=== PATIENT | female | born 1955 | race American Indian/Alaskan Native ===

== ENCOUNTER 2017-06-07 17:31 | Inpatient (IN) | payer OTHER ==
[2017-06-07 18:24] LABS: Basophils % (Auto) 0.6 % (0.0-1.8); Eosinophils % (Auto) 0.6 % (0.0-4.3); Hematocrit 36.9 % (30.3-42.9); Hemoglobin 11.6 gm/dl (10.1-14.3); Mean Corpuscular HGB Conc 32 % (30-34); Mean Corpuscular Volume 81 fl (79-97); Platelet Count 228 K/mm3 (140-440); Red Blood Count 4.54 M/mm3 (3.65-5.03); Red Cell Distribution Width 14.8 % (13.2-15.2); White Blood Count 7.2 K/mm3 (4.5-11.0)
[2017-06-07 18:26] LABS: Mean Corpuscular Hemoglobin 26 pg (28-32)
--- NOTE | 2017-06-07 18:27 | Emergency Department Report ---
HPI - General Chief Complaint: Chest Pain Time Seen by Provider: 06/07/17 18:05 - HPI HPI: Room 19 The patient is a 61-year-old female presenting with a chief complaint of chest pain. The patient states her symptoms began this morning intermittent substernal chest pain associated with nausea. Patient denies shortness of breath or vomiting. 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 Location: Chest Duration: Constant 1 day Quality: Pain Severity: Moderate Modifying factors: [see above] Context: [see above] Mode of transportation: [not driving] ED Past Medical Hx - Past Medical History Previous Medical History?: Yes Hx Hypertension: Yes Hx Diabetes: Yes - Surgical History Past Surgical History?: Yes Additional Surgical History: 2 C-Sections in 1986 and 2002 - Family History Family history: no significant - Social History Smoking Status: Never Smoker Substance Use Type: None - Medications Home Medications: Home Medications Medication Instructions Recorded Confirmed Last Taken Type Verapamil HCl [Verapamil ER] 180 mg PO QDAY 07/07/13 03/12/15 03/12/15 08:00 History cloNIDine [Catapres] 0.2 mg PO QHS 07/07/13 03/12/15 03/11/15 21:00 History metFORMIN [Glucophage] 500 mg PO QDAY 07/07/13 03/12/15 03/12/15 13:30 History Loratadine [Claritin] 10 mg PO DAILY 03/12/15 03/12/15 03/12/15 08:00 History Hydrochlorothiazide [HCTZ] 25 mg PO QDAY #30 tablet 03/13/15 Unknown Rx Prednisone [predniSONE 10 mg 10 mg PO .TAPER #1 tab.ds.pk 03/13/15 Unknown Rx (6-Day Pack, 21 Tabs)] cloNIDine [Catapres] 0.1 mg PO BID #60 tablet 03/13/15 Unknown Rx ED Review of Systems ROS: Stated complaint: CHEST PAIN Other details as noted in HPI Constitutional: denies: diaphoresis Respiratory: denies: shortness of breath Cardiovascular: chest pain Gastrointestinal: nausea. denies: vomiting Physical Exam - Physical Exam Vital Signs: Vital Signs 06/07/17 17:53 Temperature 98.3 F Pulse Rate 35 L Respiratory 16 Rate Blood Pressure 132/69 O2 Sat by Pulse 100 Oximetry Physical Exam: GENERAL: The patient is well-developed well-nourished female lying on a stretcher appearing to be in mild discomfort. [] HEENT: Normocephalic. Atraumatic. Extraocular motions are intact. Patient has moist mucous membranes. NECK: Supple. Trachea midline CHEST/LUNGS: Clear to auscultation. There is no respiratory distress noted. HEART/CARDIOVASCULAR: Regular. There is no tachycardia. There is no gallop rub or murmur. ABDOMEN: Abdomen is soft, nontender. Patient has normal bowel sounds. There is no abdominal distention. SKIN: There is no rash. There is no diaphoresis. NEURO: The patient is awake, alert, and oriented. The patient is cooperative. The patient has normal speech and gait. MUSCULOSKELETAL: There is no evidence of acute injury. ED Course Vital Signs 06/07/17 17:53 Temperature 98.3 F Pulse Rate 35 L Respiratory 16 Rate Blood Pressure 132/69 O2 Sat by Pulse 100 Oximetry - Consultations Consultation #1: 06/07/17 18:08 EKG and case discussed with Dr. Fransisco Owusu. Requests laborer wharf be called in. Will place temporary pacemaker. Requests hospitalist admit ED Medical Decision Making - Lab Data Result diagrams: 06/07/17 18:11 06/07/17 18:11 Laboratory Tests 06/07/17 06/07/17 06/07/17 18:11 18:11 18:11 WBC 7.2 RBC 4.54 Hgb 11.6 Hct 36.9 MCV 81 MCH 26 L MCHC 32 RDW 14.8 Plt Count 228 Lymph % (Auto) 27.9 [place] % (Auto) 8.3 H Eos % (Auto) 0.6 Baso % (Auto) 0.6 Lymph # 2.0 [place] # 0.6 Eos # 0.0 Baso # 0.0 Seg Neutrophils % 62.6 Seg Neutrophils # 4.5 PT 12.6 INR 0.90 APTT 28.5 Sodium 134 L Potassium 4.1 Chloride 96.7 L Carbon Dioxide 21 L Anion Gap 20 BUN 28 H Creatinine 1.4 H Estimated GFR 46 BUN/Creatinine Ratio 20 Glucose 146 H Calcium 9.5 Total Creatine Kinase 519 H CK-MB (CK-2) 6.2 H CK-MB (CK-2) Rel Index 1.1 Troponin T < 0.010 NT-Pro-B Natriuret Pep 724.4 Digoxin 06/07/17 18:11 WBC RBC Hgb Hct MCV MCH MCHC RDW Plt Count Lymph % (Auto) [place] % (Auto) Eos % (Auto) Baso % (Auto) Lymph # [place] # Eos # Baso # Seg Neutrophils % Seg Neutrophils # PT INR APTT Sodium Potassium Chloride Carbon Dioxide Anion Gap BUN Creatinine Estimated GFR BUN/Creatinine Ratio Glucose Calcium Total Creatine Kinase CK-MB (CK-2) CK-MB (CK-2) Rel Index Troponin T NT-Pro-B Natriuret Pep Digoxin 0.4 L - EKG Data -: EKG Interpreted by Me Rate: bradycardia (34 bpm) - EKG Data When compared to previous EKG there are: previous EKG unavailable Interpretation: other (third-degree AV block) - Radiology Data Radiology results: image reviewed (chest x-ray) interpreted by me: Chest x-ray-no focal infiltrates, no pneumothorax. Cardiomegaly - Differential Diagnosis third-degree AV block, ACS Critical care attestation.: If time is entered above; I have spent that time in minutes in the direct care of this critically ill patient, excluding procedure time. ED Disposition Clinical Impression: Third degree AV block, Chest pain Disposition: OP ADMIT IP TO THIS HOSP Is pt being admited?: Yes Condition: Serious Instructions: Chest Pain (ED) Referrals: PRIMARY CARE, [Primary Care Provider] - 3-5 Days Time of Disposition: 18:27 (case discussed with Dr. Gonzales)
[2017-06-07] MEDS ORDERED: BABY ASPIRIN PO ONE (18:28)
[2017-06-07] MEDS ORDERED: BABY ASPIRIN ONE (18:31)
[2017-06-07 18:34] LABS: INR 0.9 (0.87-1.13); Partial Thromboplastin Time 28.5 Sec. (24.2-36.6)
[2017-06-07 18:49] LABS: Creatine Kinase MB 6.2 ng/mL (0.0-4.0)
[2017-06-07 18:50] LABS: Anion Gap 20 mmol/L; BUN/Creatinine Ratio 20; Blood Urea Nitrogen 28 mg/dL (7-17); Calcium 9.5 mg/dL (8.4-10.2); Carbon Dioxide 21 mmol/L (22-30); Chloride 96.7 mmol/L (98-107); Creatine Kinase 519 units/L (30-135); Glucose 146 mg/dL (65-100); Potassium 4.1 mmol/L (3.6-5.0); Sodium 134 mmol/L (137-145)
[2017-06-07] MEDS ORDERED: ATROPINE 0.1% (CARDIAC) ONE (19:07)
[2017-06-07] MEDS ORDERED: NACL 0.9% 0 ML ONE (19:07)
[2017-06-07] MEDS ORDERED: HEPARIN/NS 5000 UNIT/500ML(CATH LAB) 1,000 ML IR ONE (19:07)
[2017-06-07] MEDS ORDERED: ANGIOMAX IV ONE (19:08)
[2017-06-07] MEDS ORDERED: VERSED ONE (19:08)
[2017-06-07] MEDS ORDERED: SUBLIMAZE ONE (19:08)
[2017-06-07] MEDS ORDERED: XYLOCAINE 2% INFILTRATI ONE (19:09)
[2017-06-07] MEDS ORDERED: NACL 0.9% 500 ML 500 ML ONE ×2 (19:09→19:15)
--- NOTE | 2017-06-07 20:21 | Cardiac Catherization Report ---
NO DICTATION JOB# [id number] SBM/NTS
--- NOTE | 2017-06-07 21:08 | History and Physical Report ---
History of Present Illness Date of admission: 06/07/17 18:27 Chief complaint: My chest hurts History of present illness: 61 YO Female with HTN, DM, Obesity presents to ED for evaluation. Pt states that she has been experiencing pain in her chest for the past day with persistent symptoms during that same time period. Pt states that pain is 10/10, substernal, nonradiating, not worsened with exertion or relieved with rest, associated with diaphoresis, or shortness of braeath. Pt seen and and evaluated in ED and found to have 3rd degree heart block, and worsening chest pain consistent with Angina at rest. Cardiology team notified and patient taken urgently to Press Shop Supervisor. No reports of fever, chills, palpitations, NVD, Syncope, prolonged immobility/travel, individual/family history of DVT/PE, Productive cough, or recent ill contacts. Past History Past Medical History: diabetes, hypertension, other (obesity) Past Surgical History: , Other (reviewed) Social history: single. denies: smoking, alcohol abuse, prescription drug abuse Family history: diabetes, hypertension Medications and Allergies Allergies Allergy/AdvReac Type Severity Reaction Status Date / Time lisinopril AdvReac Intermediate Angioedema Verified 06/07/17 17:53 Home Medications Medication Instructions Recorded Confirmed Last Taken Type Verapamil HCl [Verapamil ER] 180 mg PO QDAY 07/07/13 03/12/15 03/12/15 08:00 History cloNIDine [Catapres] 0.2 mg PO QHS 07/07/13 03/12/15 03/11/15 21:00 History metFORMIN [Glucophage] 500 mg PO QDAY 07/07/13 03/12/15 03/12/15 13:30 History Loratadine [Claritin] 10 mg PO DAILY 03/12/15 03/12/15 03/12/15 08:00 History Hydrochlorothiazide [HCTZ] 25 mg PO QDAY #30 tablet 03/13/15 Unknown Rx Prednisone [predniSONE 10 mg 10 mg PO .TAPER #1 tab.ds.pk 03/13/15 Unknown Rx (6-Day Pack, 21 Tabs)] cloNIDine [Catapres] 0.1 mg PO BID #60 tablet 03/13/15 Unknown Rx Review of Systems Constitutional: no weight loss, no weight gain, no fever, no chills, no sweats Ears, nose, mouth and throat: no ear pain, no ear discharge, no tinnitis, no decreased hearing, no nose pain, no nasal congestion, no nasal discharge Breasts: no change in shape, no swelling, no mass Cardiovascular: chest pain, no orthopnea, no palpitations, no rapid/irregular heart beat, no edema, no syncope, no lightheadedness Respiratory: no cough, no cough with sputum, no excessive sputum, no hemoptysis , no shortness of breath, no dyspnea on exertion Gastrointestinal: no abdominal pain, no nausea, no vomiting, no diarrhea, no constipation Genitourinary Female: no pelvic pain, no flank pain, no menorrhagia, no dysuria , no urinary frequency, no urgency Rectal: no pain, no incontinence, no bleeding Musculoskeletal: no neck stiffness, no neck pain, no shooting arm pain, no arm numbness/tingling, no low back pain, no shooting leg pain, no leg numbness/ tingling, no redness of joints Integumentary: no rash, no pruritis, no redness, no sores, no wounds, no jaundice, no boils Neurological: no head injury, no transient paralysis, no paralysis, no weakness , no parathesias, no numbness, no tingling, no seizures Psychiatric: no anxiety, no memory loss, no change in sleep habits, no sleep disturbances, no insomnia, no hypersomnia, no change in appetite, no suicidal ideation, no disorientation Endocrine: no cold intolerance, no heat intolerance, no polyphagia, no excessive thirst, no polydipsia, no polyuria, no nocturia, no excessive sweating , no flushing Hematologic/Lymphatic: no easy bruising, no easy bleeding Allergic/Immunologic: no urticaria, no allergic rhinitis, no wheezing Exam - Constitutional Vitals: Temp Pulse Resp BP Pulse Ox 97.5 F L 34 L 12 142/64 100 06/07/17 18:05 06/07/17 18:05 06/07/17 18:05 06/07/17 18:05 06/07/17 18:05 General appearance: Present: mild distress, obese - EENT Eyes: Present: PERRL ENT: hearing intact, clear oral mucosa - Neck Neck: Present: supple, normal ROM - Respiratory Respiratory effort: normal Respiratory: bilateral: CTA - Cardiovascular Heart Sounds: Present: S1 & S2. Absent: rub, click - Extremities Extremities: pulses symmetrical, No edema Peripheral Pulses: within normal limits - Abdominal General gastrointestinal: Present: soft, non-tender, non-distended, normal bowel sounds Female genitourinary: Present: normal - Integumentary Integumentary: Present: clear, warm, dry - Musculoskeletal Musculoskeletal: gait normal, strength equal bilaterally - Psychiatric Psychiatric: appropriate mood/affect, intact judgment & insight, agitated - Neurologic Neurologic: CNII-XII intact, moves all extremities Results - Labs CBC & Chem 7: 06/07/17 18:11 06/07/17 18:11 Labs: Abnormal lab results 06/07/17 06/07/17 06/07/17 Range/Units 18:11 18:11 18:11 MCH 26 L (28-32) pg [place] % (Auto) 8.3 H (0.0-7.3) % Sodium 134 L (137-145) mmol/L Chloride 96.7 L (98-107) mmol/L Carbon Dioxide 21 L (22-30) mmol/L BUN 28 H (7-17) mg/dL Creatinine 1.4 H (0.7-1.2) mg/dL Glucose 146 H (65-100) mg/dL Total Creatine Kinase 519 H (30-135) units/L CK-MB (CK-2) 6.2 H (0.0-4.0) ng/mL Digoxin 0.4 L (0.9-2.0) ng/mL Assessment and Plan - Patient Problems (1) ACS (acute coronary syndrome) Current Visit: Yes Status: Acute Plan to address problem: Serial cardiac enzymes, ekg, telemetry, Cardiology consulted, Pt taken urgent to lab support technician for intervention, Admit to ICU, The high probability of a clinically significant, sudden or life threatening deterioration of the [Cardiac, pulmonary, renal] system(s) required my full and direct attention, intervention and personal management. The aggregate critical care time was [68] minutes. This time is in addition to time spent performing reported procedures but includes the following: [x] Data Review and interpretation [x] Patient assessment and monitoring of vital signs [x] Documentation [x] Medication orders and management (2) Third degree AV block Current Visit: Yes Status: Acute Plan to address problem: Cardiology consulted, supportive care, admit to ICU (3) HTN (hypertension) Current Visit: Yes Status: Acute Plan to address problem: monitor BP q shift, continue medical management (4) Diabetes Current Visit: Yes Status: Acute Plan to address problem: ADA diet, insulin, accu check (5) Metabolic syndrome Current Visit: Yes Status: Acute Plan to address problem: Balanced diet, lipid panel, increased physical activity as discharge. (6) DVT prophylaxis Current Visit: Yes Status: Acute
--- NOTE | 2017-06-07 22:17 | Cardiac Catherization Report ---
REFERRING PHYSICIAN: ER physician. INDICATION FOR PROCEDURE: The patient is a pleasant 61-year-old -Prydeinig female who has not been feeling well with chest pain, nausea, vomiting, and fatigue since this morning, found to have complete heart block and chest pain. Heart rate of 30. She is brought to the clinical genetics laboratory chief in an urgent fashion. Risks, benefits, and alternatives discussed prior to obtaining informed consent. PROCEDURE IN DETAIL: The patient was brought to catheterization lab in an urgent fashion, prepped and draped in a sterile fashion. An 8 mL of 2% lidocaine used to anesthetize the right groin. A standard 6-Sud[place] sheath used to cannulate the right common femoral artery and right femoral vein, 6-Sudanese sheath placed in both. Under fluoroscopic guidance, I placed a balloon-tipped temporary venous pacemaker, backup rate set at 60, functioning normally. Next, we turned our attention to the coronary angiography. JL4 catheter used to engage the left main. No dampening . Cineangiography performed in all projections. Pigtail catheter used to cross the aortic valve under fluoroscopic guidance. Left ventriculography free from 30-degree GILL and AZERI projections via hand injections, catheter flushed. Manual pullback performed with continuous pressure monitoring. Catheter used to engage the right coronary. A catheter used to engage the right coronary with no torque to right catheter. Angiography performed in all projections. Catheter removed from the body over wire. Arterial sheath is removed. Her [place] heart rate is still in the 30s and 40s to complete heart block. Backup heart rate is at 60. I tested with the pacemaker multiple times to ensure that it is in place with good thresholds and output. At this point, the femoral sheath was removed. Temporary venous pacemaker is in place, bed rest until further notice. Avoid all AV blockers. She has been on atenolol in the past. We will need this will see this wear off. She may have end up needing a permanent pacemaker. EP consult in a.m. We will watch her blood pressure. Hospitalist to admit. We will need an echocardiogram as well. CONCLUSIONS: 1. No angiographic evidence of significant epicardial coronary disease in this right dominant system. 2. Normal left ventricular systolic performance, estimated ejection fraction of 55%-60%. 3. No evidence of aortic stenosis. 4. Temporary venous pacemaker placement for complete heart block, backup rate set at 60. We will watch overnight in the ICU, bed rest, venous pacemaker in place. We will let the atenolol wear off and see where we stand from [place] heart rate. She is feeling much better, clinically improved. Discussed with her daughter who is here is very helpful as well. All questions and concerns were addressed. JOB# [id number] SBM/NTS
--- NOTE | 2017-06-08 09:32 | Consultation ---
History of Present Illness Consult date: 06/08/17 Requesting physician: JIMBO KELLEY Consult reason: other (CHB) History of present illness: The patient is a 61-year-old female with a past medical history significant for HTN, HLP, DM. She is previously unknown to our practice. She presented on 2016 with c/o chest pain, n/v and fatigue which began yesterday morning. She states the chest pain was a nonexertional nonradiating substernal pressure which was associated with nausea. She denies any palpitations, SOB, diaphoresis , dizziness or syncope. Following arrival in ED, pt was found to be in complete heart block with HR in 30s. She was subsequently urgently taken to film laboratory technician yesterday evening for TVP placement. She successfully underwent LHC, which showed no angiographic evidence of significant CAD, EF 55-60%, and TVP placement. On evaluation, she denies any current complaints and is 100% paced at 60bpm, BPs stable. Underlying rhythm is still noted to be CHB. Of note, pt's anti-hypertensive regimen prior to admission included atenolol 50mg daily, hydralazine and amlodipine. Pt denies any prior history of cardiac arrhythmias, cardiac w/u, or ever seeing a design project manager. Past History Past Medical History: diabetes, hypertension, hyperlipidemia, other (obesity) Past Surgical History: Social history: single. denies: smoking, alcohol abuse, prescription drug abuse Family history: diabetes, hypertension Medications and Allergies Allergies Allergy/AdvReac Type Severity Reaction Status Date / Time lisinopril AdvReac Intermediate Angioedema Verified 06/07/17 17:53 Home Medications Medication Instructions Recorded Confirmed Last Taken Type metFORMIN [Glucophage] 1,000 mg PO QDAY 07/07/13 06/08/17 06/06/17 History Atenolol [Tenormin] 1 tab PO DAILY 06/08/17 06/08/17 06/06/17 History Lovastatin 1 tab PO DAILY 06/08/17 06/08/17 06/06/17 History Triamter/Hctz 37.5-25 mg 1 tab PO DAILY 06/08/17 06/08/17 06/06/17 History amLODIPine 1 tab PO DAILY 06/08/17 06/08/17 06/06/17 History hydrALAZINE 50 mg PO TID 06/08/17 06/08/17 06/06/17 History Review of Systems Constitutional: fatigue, no weight loss, no weight gain, no fever, no chills, no sweats Ears, nose, mouth and throat: no ear pain, no nose pain, no sinus pressure, no sinus pain Cardiovascular: chest pain, high blood pressure, no orthopnea, no palpitations, no rapid/irregular heart beat, no edema, no syncope, no lightheadedness, no shortness of breath, no dyspnea on exertion, no leg edema Respiratory: no cough, no shortness of breath, no dyspnea on exertion, no congestion, no wheezing, no pain on inspiration Gastrointestinal: nausea, vomiting, no abdominal pain, no diarrhea, no constipation, no change in bowel habits Genitourinary Female: no pelvic pain, no flank pain, no dysuria, no urinary frequency, no urgency Musculoskeletal: no neck stiffness, no neck pain, no shooting arm pain, no arm numbness/tingling, no low back pain, no shooting leg pain, no leg numbness/ tingling, no redness of joints Integumentary: no rash, no pruritis, no redness, no sores, no wounds Neurological: no head injury, no paralysis, no weakness, no parathesias, no numbness, no tingling, no seizures, no syncope Psychiatric: no anxiety Endocrine: no cold intolerance, no heat intolerance Hematologic/Lymphatic: no easy bruising, no easy bleeding, no lymphadenopathy Allergic/Immunologic: no urticaria, no wheezing, no persistent infections Physical Examination Vital Signs Temp Pulse Resp BP Pulse Ox 98.3 F 35 L 16 132/69 100 06/07/17 17:53 06/07/17 17:53 06/07/17 17:53 06/07/17 17:53 06/07/17 17:53 General appearance: no acute distress HEENT: Positive: PERRL, Normocephaly, Mucus Membranes Moist Neck: Positive: neck supple, trachea midline Cardiac: Positive: Reg Rate and Rhythm, S1/S2 Lungs: Positive: clear to auscultation Neuro: Positive: Grossly Intact, Cranial Nerve 2-12 Intact Abdomen: Positive: Unremarkable, Soft, Active Bowel Sounds. Negative: Tender Skin: Positive: Clear. Negative: Rash Incision: Cardiac Cath Site (right femoral TVP in place ) Musculoskeletal: No Fluid Collection, No Pain, Normal Range of Motion Extremities: Present: upper extr. pulses, lower extr. pulses. Absent: edema Results 06/07/17 18:11 06/07/17 18:11 Cardiac Enzymes 06/07/17 Range/Units 18:11 CK-MB (CK-2) 6.2 H (0.0-4.0) ng/mL Coagulation 06/07/17 Range/Units 18:11 PT 12.6 (12.2-14.9) Sec. INR 0.90 (0.87-1.13) APTT 28.5 (24.2-36.6) Sec. CBC 06/07/17 Range/Units 18:11 WBC 7.2 (4.5-11.0) K/mm3 RBC 4.54 (3.65-5.03) M/mm3 Hgb 11.6 (10.1-14.3) gm/dl Hct 36.9 (30.3-42.9) % Plt Count 228 (140-440) K/mm3 Lymph # 2.0 (1.2-5.4) K/mm3 [place] # 0.6 (0.0-0.8) K/mm3 Eos # 0.0 (0.0-0.4) K/mm3 Baso # 0.0 (0.0-0.1) K/mm3 Comprehensive Metabolic Panel 06/07/17 Range/Units 18:11 Sodium 134 L (137-145) mmol/L Potassium 4.1 (3.6-5.0) mmol/L Chloride 96.7 L (98-107) mmol/L Carbon Dioxide 21 L (22-30) mmol/L BUN 28 H (7-17) mg/dL Creatinine 1.4 H (0.7-1.2) mg/dL Glucose 146 H (65-100) mg/dL Calcium 9.5 (8.4-10.2) mg/dL - Imaging and Cardiology Echo: pending Cardiac cath: report reviewed ( no angiographic evidence of significant CAD, EF 55-60%`) EKG: report reviewed, image reviewed EKG interpretations - Telemetry EKG Rhythm: Paced AV and intraventricular conduction: complete (3) AV block Assessment and Plan Assessment: Complete heart block - TVP in situ HTN HLP DM Elevated DDimer - consider further imaging to r/o PE per primary Plan: Obtain EP consultation for possible PPM implantation. Obtain echo. Obtain thyroid panel. Cont to hold all AV graham blocking agents. Assessment and plan reviewed with pt and pt's daughter at bedside. The patient has been seen in conjunction with Dr. Emeterio Owusu who agrees with the assessment and plan of care.
--- NOTE | 2017-06-08 09:53 | Consultation ---
History of Present Illness Consult date: 06/08/17 Requesting physician: MORIAH SALAS Reason for consult: other (Symptomatic Bradycardia) History of present illness: PULMONARY/CCM CONSULT NOTE (Full dictation # [id number]) Please see dictated notes for full details Past History Past Medical History: diabetes, hypertension, hyperlipidemia, other (obesity) Past Surgical History: Social history: single. denies: smoking, alcohol abuse, prescription drug abuse Family history: diabetes, hypertension Medications and Allergies Allergies Allergy/AdvReac Type Severity Reaction Status Date / Time lisinopril AdvReac Intermediate Angioedema Verified 06/07/17 17:53 Home Medications Medication Instructions Recorded Confirmed Last Taken Type metFORMIN [Glucophage] 1,000 mg PO QDAY 07/07/13 06/08/17 06/06/17 History Atenolol [Tenormin] 1 tab PO DAILY 06/08/17 06/08/17 06/06/17 History Lovastatin 1 tab PO DAILY 06/08/17 06/08/17 06/06/17 History Triamter/Hctz 37.5-25 mg 1 tab PO DAILY 06/08/17 06/08/17 06/06/17 History amLODIPine 1 tab PO DAILY 06/08/17 06/08/17 06/06/17 History hydrALAZINE 50 mg PO TID 06/08/17 06/08/17 06/06/17 History Physical Examination Vital signs: Vital Signs Temp Pulse Resp BP Pulse Ox 98.3 F 35 L 16 132/69 100 06/07/17 17:53 06/07/17 17:53 06/07/17 17:53 06/07/17 17:53 06/07/17 17:53 Results - Laboratory Findings CBC and BMP: 06/07/17 18:11 06/07/17 18:11 PT/INR, D-dimer PT 12.6 Sec. (12.2-14.9) 06/07/17 18:11 INR 0.90 (0.87-1.13) 06/07/17 18:11 D-Dimer 356.84 ng/mlDDU (0-234) H 06/07/17 18:11 Abnormal lab findings: Abnormal Labs 06/07/17 06/07/17 06/07/17 18:11 18:11 18:11 MCH 26 L [place] % (Auto) 8.3 H D-Dimer Sodium 134 L Chloride 96.7 L Carbon Dioxide 21 L BUN 28 H Creatinine 1.4 H Glucose 146 H Total Creatine Kinase 519 H CK-MB (CK-2) 6.2 H Digoxin 0.4 L 06/07/17 18:11 MCH [place] % (Auto) D-Dimer 356.84 H Sodium Chloride Carbon Dioxide BUN Creatinine Glucose Total Creatine Kinase CK-MB (CK-2) Digoxin
--- NOTE | 2017-06-08 10:21 | Consultation ---
REFERRING PHYSICIAN: Dr. Mancini in the Emergency Room. PRIMARY CARE PHYSICIAN: Dr. Grover in [place]. No known medical records administrator. REASON FOR CONSULTATION: Advice and opinion regarding bradycardia and chest pain. HISTORY OF PRESENT ILLNESS: The patient is a very pleasant 61-year-old female having fatigue, dizziness and nausea since 10:00 a.m., came to the Emergency Room this evening, found to have severe bradycardia, heart rate of 30, having some chest pain, but her primary concern is fatigue. No syncope, brought by her daughter. Occasional diaphoresis, nausea. No bleeding, hematemesis, rash, fevers, chills. PAST MEDICAL HISTORY: Includes hypertension. She is on atenolol amongst some other antihypertensives. Also diabetes. ALLERGIES: LISINOPRIL. No known drug, food, or environmental allergies. REVIEW OF SYSTEMS: As per HPI. PHYSICAL EXAMINATION: VITAL SIGNS: Heart rates in the 30s, blood pressure is 130/70. She is afebrile. O2 sats 100% on room air. GENERAL: This is a middle-aged -Turkish female in no apparent distress, oriented x 3. HEENT: Sclerae icteric. NECK: Supple, no masses, no JVD. CHEST: Clear to auscultation bilaterally. Good air movement. CARDIOVASCULAR: Regular S1, S2. ABDOMEN: Soft, nontender, nondistended. Normoactive bowel sounds in all 4 quadrants. No mass or bruits. EXTREMITIES: No cyanosis, clubbing or edema. Good peripheral pulses. SKIN: Intact. No rashes. LABORATORY DATA: Pending. EKG reveals complete heart block, heart rate of 30. ASSESSMENT AND PLAN: Given chest pain and complete heart block, we will proceed with urgent left heart catheterization. Risks, benefits, alternatives discussed. Further plans contingent on these results. Hospitalist will admit the patient. JOB# [id number] SBM/NTS
--- NOTE | 2017-06-08 10:22 | Progress Note ---
Assessment and Plan Assessment and plan: 61 YO Female with HTN, DM, Obesity presents to ED for evaluation. Pt states that she has been experiencing pain in her chest for the past day with persistent symptoms during that same time period. Pt states that pain is 10/10, substernal, nonradiating, not worsened with exertion or relieved with rest, associated with diaphoresis, or shortness of braeath. Pt seen and and evaluated in ED and found to have 3rd degree heart block, and worsening chest pain consistent with Angina at rest. Cardiology team notified and patient taken urgently to [facility]. No reports of fever, chills, palpitations, NVD, Syncope, prolonged immobility/travel, individual/family history of DVT/PE, Productive cough, or recent ill contacts. 3rd degree heart block Serial cardiac enzymes, ekg, telemetry, Cardiology consulted, Pt taken urgent to lab asst for intervention, cath showed no stenosis, and preserved EF for PPM tomorrow case dw cardiology The high probability of a clinically significant, sudden or life threatening deterioration of the [Cardiac, pulmonary, renal] system(s) required my full and direct attention, intervention and personal management. The aggregate critical care time was [68] minutes. This time is in addition to time spent performing reported procedures but includes the following: [x] Data Review and interpretation [x] Patient assessment and monitoring of vital signs [x] Documentation [x] Medication orders and management HTN (hypertension) monitor BP q shift, continue medical management Diabetes ADA diet, insulin, accu check Metabolic syndrome Balanced diet, lipid panel, increased physical activity as discharge. The high probability of a clinically significant, sudden or life threatening deterioration of the [cardiovascular] system(s) required my full and direct attention, intervention and personal management. The aggregate critical care time was [33] minutes. This time is in addition to time spent performing reported procedures but includes the following: [] Data Review and interpretation [] Patient assessment and monitoring of vital signs [] Documentation [] Medication orders and management History Interval history: Review of systems Constitutional: No fevers, no malaise, no joint pains CVS: No chest pain, no orthopnea, no dyspnea on exertion, no pedal edema GI: No abdominal pain, no diarrhea, no vomiting, no constipation Respiratory: No shortness of breath, no wheezing, no coughing Hospitalist Physical - Physical exam Narrative exam: General appearance: Present: mild distress, obese - EENT Eyes: Present: PERRL ENT: hearing intact, clear oral mucosa - Neck Neck: Present: supple, normal ROM - Respiratory Respiratory effort: normal Respiratory: bilateral: CTA - Cardiovascular Heart Sounds: Present: S1 & S2. Absent: rub, click - Extremities Extremities: pulses symmetrical, No edema Peripheral Pulses: within normal limits - Abdominal General gastrointestinal: Present: soft, non-tender, non-distended, normal bowel sounds Female genitourinary: Present: normal - Integumentary Integumentary: Present: clear, warm, dry - Musculoskeletal Musculoskeletal: gait normal, strength equal bilaterally - Psychiatric Psychiatric: appropriate mood/affect, intact judgment & insight, agitated - Neurologic Neurologic: CNII-XII intact, moves all extremities - Constitutional Vitals: Temp Pulse Resp BP Pulse Ox 98.1 F 59 L 15 97/70 100 06/08/17 08:00 06/08/17 06:31 06/08/17 06:31 06/08/17 06:31 06/08/17 08:28 General appearance: Present: no acute distress Results - Labs CBC & Chem 7: 06/09/17 04:49 06/09/17 04:49 Labs: Laboratory Last Values WBC 7.2 K/mm3 (4.5-11.0) 06/07/17 18:11 RBC 4.54 M/mm3 (3.65-5.03) 06/07/17 18:11 Hgb 11.6 gm/dl (10.1-14.3) 06/07/17 18:11 Hct 36.9 % (30.3-42.9) 06/07/17 18:11 MCV 81 fl (79-97) 06/07/17 18:11 MCH 26 pg (28-32) L 06/07/17 18:11 MCHC 32 % (30-34) 06/07/17 18:11 RDW 14.8 % (13.2-15.2) 06/07/17 18:11 Plt Count 228 K/mm3 (140-440) 06/07/17 18:11 Lymph % (Auto) 27.9 % (13.4-35.0) 06/07/17 18:11 [place] % (Auto) 8.3 % (0.0-7.3) H 06/07/17 18:11 Eos % (Auto) 0.6 % (0.0-4.3) 06/07/17 18:11 Baso % (Auto) 0.6 % (0.0-1.8) 06/07/17 18:11 Lymph # 2.0 K/mm3 (1.2-5.4) 06/07/17 18:11 [place] # 0.6 K/mm3 (0.0-0.8) 06/07/17 18:11 Eos # 0.0 K/mm3 (0.0-0.4) 06/07/17 18:11 Baso # 0.0 K/mm3 (0.0-0.1) 06/07/17 18:11 Seg Neutrophils % 62.6 % (40.0-70.0) 06/07/17 18:11 Seg Neutrophils # 4.5 K/mm3 (1.8-7.7) 06/07/17 18:11 PT 12.6 Sec. (12.2-14.9) 06/07/17 18:11 INR 0.90 (0.87-1.13) 06/07/17 18:11 APTT 28.5 Sec. (24.2-36.6) 06/07/17 18:11 D-Dimer 356.84 ng/mlDDU (0-234) H 06/07/17 18:11 Sodium 134 mmol/L (137-145) L 06/07/17 18:11 Potassium 4.1 mmol/L (3.6-5.0) 06/07/17 18:11 Chloride 96.7 mmol/L (98-107) L 06/07/17 18:11 Carbon Dioxide 21 mmol/L (22-30) L 06/07/17 18:11 Anion Gap 20 mmol/L 06/07/17 18:11 BUN 28 mg/dL (7-17) H 06/07/17 18:11 Creatinine 1.4 mg/dL (0.7-1.2) H 06/07/17 18:11 Estimated GFR 46 ml/min 06/07/17 18:11 BUN/Creatinine Ratio 20 % 06/07/17 18:11 Glucose 146 mg/dL (65-100) H 06/07/17 18:11 POC Glucose 100 (70-105) 06/08/17 05:55 Calcium 9.5 mg/dL (8.4-10.2) 06/07/17 18:11 Total Creatine Kinase 519 units/L (30-135) H 06/07/17 18:11 CK-MB (CK-2) 6.2 ng/mL (0.0-4.0) H 06/07/17 18:11 CK-MB (CK-2) Rel Index 1.1 (0-4) 06/07/17 18:11 Troponin T < 0.010 ng/mL (0.00-0.029) 06/07/17 18:11 NT-Pro-B Natriuret Pep 724.4 pg/mL (0-900) 06/07/17 18:11 Digoxin 0.4 ng/mL (0.9-2.0) L 06/07/17 18:11
--- NOTE | 2017-06-08 10:22 | XRay Report ---
PORTABLE CHEST INDICATION: Chest pain. COMPARISON: None similar. FINDINGS: Portable, frontal chest radiograph demonstrates mild cardiomegaly. Clear lungs. EKG leads. Thoracic spondylosis. CONCLUSION: Mild cardiomegaly, as described. Thank you for the opportunity to participate in this patient's care.
[2017-06-08] MEDS ORDERED: LOVENOX SUB-Q SCH (11:00)
--- NOTE | 2017-06-08 12:34 | Event Note ---
Date: 06/08/17 Will tentatively plan for PPM implantation tomorrow per Dr. Perdomo. NPO after MN. Jordi HENDERSON NP / DR. Emeterio SALAS
[2017-06-09] MEDS: TYLENOL PO PRN ×2 (00:28→20:13)
[2017-06-09 05:53] LABS: Basophils % (Auto) 0.3 % (0.0-1.8); Eosinophils % (Auto) 1.5 % (0.0-4.3); Hematocrit 38.1 % (30.3-42.9); Hemoglobin 12.5 gm/dl (10.1-14.3); Mean Corpuscular HGB Conc 33 % (30-34); Mean Corpuscular Hemoglobin 27 pg (28-32); Mean Corpuscular Volume 81 fl (79-97); Platelet Count 195 K/mm3 (140-440); Red Blood Count 4.69 M/mm3 (3.65-5.03); Red Cell Distribution Width 14.5 % (13.2-15.2)
[2017-06-09 05:57] LABS: Anion Gap 18 mmol/L; BUN/Creatinine Ratio 21; Blood Urea Nitrogen 23 mg/dL (7-17); Calcium 9.1 mg/dL (8.4-10.2); Carbon Dioxide 26 mmol/L (22-30); Chloride 101.5 mmol/L (98-107); Glucose 108 mg/dL (65-100); Potassium 4.2 mmol/L (3.6-5.0); Sodium 141 mmol/L (137-145)
[2017-06-09 06:00] LABS: INR 1.07 (0.87-1.13)
--- NOTE | 2017-06-09 09:38 | Progress Note ---
Assessment and Plan Assessment: Complete heart block - TVP in situ HTN HLP DM Elevated DDimer - consider further imaging to r/o PE per primary Plan: Tentatively for PPM implantation today. Echo reviewed - EF 50-55%, impaired relaxation, trace TR, Cont to hold all AV graham blocking agents. Assessment and plan reviewed with pt and pt's daughter at bedside. The patient has been seen in conjunction with Dr. Emeterio Owusu who agrees with the assessment and plan of care. Subjective Date of service: 06/09/17 Principal diagnosis: CHB Interval history: pt resting comfortably in bed, no current cardiac complaints. TVP in place via right groin. Paced on tele with no acute event overnight. Has been NPO since MN pending tentative PPM implantation today. Objective Last Vital Signs Temp 98.0 F 06/09/17 08:00 Pulse 60 06/09/17 09:00 Resp 17 06/09/17 09:00 BP 101/77 06/09/17 09:00 Pulse Ox 100 06/09/17 09:23 - Physical Examination General: No Apparent Distress HEENT: Positive: PERRL, Normocephaly, Mucus Membranes Moist Neck: Positive: neck supple, trachea midline Cardiac: Positive: Reg Rate and Rhythm, S1/S2 Lungs: Positive: clear to auscultation Neuro: Positive: Grossly Intact, Cranial Nerve 2-12 Intact Abdomen: Positive: Unremarkable, Soft, Active Bowel Sounds. Negative: Tender Skin: Positive: Clear. Negative: Rash Incision: Cardiac Cath Site (right femoral TVP in place ) Musculoskeletal: No Fluid Collection, No Pain, Normal Range of Motion Extremities: Present: upper extr. pulses, lower extr. pulses. Absent: edema - Labs and Meds Cardiac Enzymes 06/08/17 Range/Units 14:54 CK-MB (CK-2) 3.0 (0.0-4.0) ng/mL Coagulation 06/09/17 Range/Units 04:49 PT 14.4 (12.2-14.9) Sec. INR 1.07 (0.87-1.13) CBC 06/09/17 Range/Units 04:49 WBC 6.0 (4.5-11.0) K/mm3 RBC 4.69 (3.65-5.03) M/mm3 Hgb 12.5 (10.1-14.3) gm/dl Hct 38.1 (30.3-42.9) % Plt Count 195 (140-440) K/mm3 Lymph # 1.9 (1.2-5.4) K/mm3 [place] # 0.6 (0.0-0.8) K/mm3 Eos # 0.1 (0.0-0.4) K/mm3 Baso # 0.0 (0.0-0.1) K/mm3 Comprehensive Metabolic Panel 06/09/17 Range/Units 04:49 Sodium 141 D (137-145) mmol/L Potassium 4.2 (3.6-5.0) mmol/L Chloride 101.5 (98-107) mmol/L Carbon Dioxide 26 (22-30) mmol/L BUN 23 H (7-17) mg/dL Creatinine 1.1 (0.7-1.2) mg/dL Glucose 108 H (65-100) mg/dL Calcium 9.1 (8.4-10.2) mg/dL - Imaging and Cardiology EKG: report reviewed, image reviewed Echo: report reviewed (EF 50-55%, impaired relaxation, trace TR) Cardiac cath: report reviewed ( no angiographic evidence of significant CAD, EF 55-60%`) - Telemetry EKG Rhythm: Paced AV and intraventricular conduction: complete (3) AV block
[2017-06-09 11:34] LABS: Creatine Kinase MB 2.9 ng/mL (0.0-4.0)
[2017-06-09 11:35] LABS: Creatine Kinase 213 units/L (30-135)
--- NOTE | 2017-06-09 12:59 | Progress Note ---
Assessment and Plan Assessment and plan: 61 YO Female with HTN, DM, Obesity presents to ED for evaluation. Pt states that she has been experiencing pain in her chest for the past day with persistent symptoms during that same time period. Pt states that pain is 10/10, substernal, nonradiating, not worsened with exertion or relieved with rest, associated with diaphoresis, or shortness of braeath. Pt seen and and evaluated in ED and found to have 3rd degree heart block, and worsening chest pain consistent with Angina at rest. Cardiology team notified and patient taken urgently to [facility]. No reports of fever, chills, palpitations, NVD, Syncope, prolonged immobility/travel, individual/family history of DVT/PE, Productive cough, or recent ill contacts. 3rd degree heart block Serial cardiac enzymes, ekg, telemetry, Cardiology consulted, Pt taken urgent to [facility] laboratory supervisor for intervention, cath showed no stenosis, and preserved EF for PPM today case dw cardiology The high probability of a clinically significant, sudden or life threatening deterioration of the [Cardiac, pulmonary, renal] system(s) required my full and direct attention, intervention and personal management. The aggregate critical care time was [68] minutes. This time is in addition to time spent performing reported procedures but includes the following: [x] Data Review and interpretation [x] Patient assessment and monitoring of vital signs [x] Documentation [x] Medication orders and management HTN (hypertension) monitor BP q shift, continue medical management Diabetes ADA diet, insulin, accu check Metabolic syndrome Balanced diet, lipid panel, increased physical activity as discharge. The high probability of a clinically significant, sudden or life threatening deterioration of the [cardiovascular] system(s) required my full and direct attention, intervention and personal management. The aggregate critical care time was [33] minutes. This time is in addition to time spent performing reported procedures but includes the following: [] Data Review and interpretation [] Patient assessment and monitoring of vital signs [] Documentation [] Medication orders and management History Interval history: Review of systems Constitutional: No fevers, no malaise, no joint pains CVS: No chest pain, no orthopnea, no dyspnea on exertion, no pedal edema GI: No abdominal pain, no diarrhea, no vomiting, no constipation Respiratory: No shortness of breath, no wheezing, no coughing Hospitalist Physical - Physical exam Narrative exam: General appearance: Present: mild distress, obese - EENT Eyes: Present: PERRL ENT: hearing intact, clear oral mucosa - Neck Neck: Present: supple, normal ROM - Respiratory Respiratory effort: normal Respiratory: bilateral: CTA - Cardiovascular Heart Sounds: Present: S1 & S2. Absent: rub, click - Extremities Extremities: pulses symmetrical, No edema Peripheral Pulses: within normal limits - Abdominal General gastrointestinal: Present: soft, non-tender, non-distended, normal bowel sounds Female genitourinary: Present: normal - Integumentary Integumentary: Present: clear, warm, dry - Musculoskeletal Musculoskeletal: gait normal, strength equal bilaterally - Psychiatric Psychiatric: appropriate mood/affect, intact judgment & insight, agitated - Neurologic Neurologic: CNII-XII intact, moves all extremities - Constitutional Vitals: Temp Pulse Resp BP Pulse Ox 98.0 F 60 17 108/73 100 06/09/17 08:00 06/09/17 11:11 06/09/17 11:11 06/09/17 11:11 06/09/17 11:11 General appearance: Present: no acute distress Results - Labs CBC & Chem 7: 06/09/17 04:49 06/09/17 04:49 Labs: Laboratory Last Values WBC 6.0 K/mm3 (4.5-11.0) 06/09/17 04:49 RBC 4.69 M/mm3 (3.65-5.03) 06/09/17 04:49 Hgb 12.5 gm/dl (10.1-14.3) 06/09/17 04:49 Hct 38.1 % (30.3-42.9) 06/09/17 04:49 MCV 81 fl (79-97) 06/09/17 04:49 MCH 27 pg (28-32) L 06/09/17 04:49 MCHC 33 % (30-34) 06/09/17 04:49 RDW 14.5 % (13.2-15.2) 06/09/17 04:49 Plt Count 195 K/mm3 (140-440) 06/09/17 04:49 Lymph % (Auto) 31.7 % (13.4-35.0) 06/09/17 04:49 Brown % (Auto) 10.1 % (0.0-7.3) H 06/09/17 04:49 Eos % (Auto) 1.5 % (0.0-4.3) 06/09/17 04:49 Baso % (Auto) 0.3 % (0.0-1.8) 06/09/17 04:49 Lymph # 1.9 K/mm3 (1.2-5.4) 06/09/17 04:49 Brown # 0.6 K/mm3 (0.0-0.8) 06/09/17 04:49 Eos # 0.1 K/mm3 (0.0-0.4) 06/09/17 04:49 Baso # 0.0 K/mm3 (0.0-0.1) 06/09/17 04:49 Seg Neutrophils % 56.4 % (40.0-70.0) 06/09/17 04:49 Seg Neutrophils # 3.4 K/mm3 (1.8-7.7) 06/09/17 04:49 PT 14.4 Sec. (12.2-14.9) 06/09/17 04:49 INR 1.07 (0.87-1.13) 06/09/17 04:49 APTT 28.5 Sec. (24.2-36.6) 06/07/17 18:11 D-Dimer 356.84 ng/mlDDU (0-234) H 06/07/17 18:11 Sodium 141 mmol/L (137-145) D 06/09/17 04:49 Potassium 4.2 mmol/L (3.6-5.0) 06/09/17 04:49 Chloride 101.5 mmol/L (98-107) 06/09/17 04:49 Carbon Dioxide 26 mmol/L (22-30) 06/09/17 04:49 Anion Gap 18 mmol/L 06/09/17 04:49 BUN 23 mg/dL (7-17) H 06/09/17 04:49 Creatinine 1.1 mg/dL (0.7-1.2) 06/09/17 04:49 Estimated GFR > 60 ml/min 06/09/17 04:49 BUN/Creatinine Ratio 21 % 06/09/17 04:49 Glucose 108 mg/dL (65-100) H 06/09/17 04:49 POC Glucose 99 (70-105) 06/09/17 11:25 Calcium 9.1 mg/dL (8.4-10.2) 06/09/17 04:49 Magnesium 1.90 mg/dL (1.7-2.3) 06/09/17 04:49 Total Creatine Kinase 213 units/L (30-135) H 06/09/17 04:49 CK-MB (CK-2) 2.9 ng/mL (0.0-4.0) 06/09/17 04:49 CK-MB (CK-2) Rel Index 1.3 (0-4) 06/09/17 04:49 Troponin T < 0.010 ng/mL (0.00-0.029) 06/09/17 04:49 NT-Pro-B Natriuret Pep 724.4 pg/mL (0-900) 06/07/17 18:11 TSH 1.400 mlU/mL (0.270-4.200) 06/08/17 09:32 Free T4 1.25 ng/dL (0.76-1.46) 06/08/17 09:32 Digoxin 0.4 ng/mL (0.9-2.0) L 06/07/17 18:11
--- NOTE | 2017-06-09 13:09 | Consultation ---
PULMONARY CRITICAL CARE CONSULTATION CONSULTING PHYSICIAN: Dr. Owusu, performance reporter. REASON FOR CONSULTATION: Symptomatic bradycardia, third-degree AV block, status post transvenous temporary pacemaker. CHIEF COMPLAINT AND HISTORY OF PRESENT ILLNESS: The patient is a 61-year-old black female with past medical history significant amongst other things for a diagnosis of diabetes and hypertension who came in to the ER after according to her, she was on her way to work and started feeling chest pain/discomfort, really difficult explain, it looked like she was about to faint. She never really passed out. Symptoms persisted. They were not affected by exertion nor relieved with rest. She did have some diaphoresis. In the ER, she was found to have a third-degree heart block and chest symptoms continued to increase. As she developed angina-type symptoms that seemed to be angina at rest in the Emergency Room, she was taken emergently to the [facility]. Reportedly, she was found to have clean coronaries; however, required placement of a temporary transvenous pacemaker. Post-placement, she was transferred to the Intensive Care Unit where I stopped by to see her. She was resting peacefully in bed. She was feeling much better since the pacemaker had been placed and no more chest pains. No nausea, no vomiting. She denies any history of smoking whatsoever. She denies any prior episodes such as this. Denies fevers, denies chills, denies new leg pain or swelling either unilaterally or bilaterally. She denies taking any herbal medications and she is, I believe on atenolol and has been using her medications, but as prescribed. That is as much of history of presentation as I have. PAST MEDICAL HISTORY: Diabetes, hypertension, obesity. PAST SURGICAL HISTORY: She has had a in the past. MEDICATIONS: She was on at the time I stopped by to see were reviewed, and pertinent medications included Lovenox 40 mg subcutaneous daily. She received, I believe Angiomax earlier that was yesterday. ALLERGIES: LISINOPRIL, nature of this allergy is unknown. DIET: She is an obese lady. Denies significant weight loss or gain history in the preceding few weeks to months. FAMILY AND SOCIAL HISTORY: Lives in the community. Denies alcohol, tobacco or illicit drug use or abuse. There is a family history of diabetes and hypertension. Her daughter is in the room during my evaluation. Family history otherwise noncontributory. REVIEW OF SYSTEMS: A complete 13 review of systems obtained. Pertinent positives and/or negatives as in body of history above. She also denies no new rash on her body. She denies any feeling of swelling in her throat. She denies any palpitations or any suggestion of allergic type reaction. REVIEW OF SYSTEMS: Otherwise noncontributory. PHYSICAL EXAMINATION: VITAL SIGNS: On presentation in the Emergency Room, review of the vital signs shows that she was afebrile, temperature 98.3, pulse was 35, respiratory rate was 16, blood pressure 132/69, oxygen sats 100%, inspired oxygen concentration was not recorded at the time I saw her, pulse was 60, but it was a paced rhythm. GENERAL: She is a middle-aged looking lady, slightly obese. Normocephalic, atraumatic, talking to me in full sentences, a little bit anxious, in mild distress. HEENT: She is anicteric. No conjunctival erythema. Grossly, no palpable lymph nodes in the supraclavicular or submandibular lymph node chains. No gross jugular venous distention. Oropharynx is a Mallampati #4 oropharynx. The oropharynx is moist. LUNGS: Auscultation of both lung tong unremarkable. Lungs are clear bilaterally. HEART: Sounds 1 and 2 are heard, regular paced rhythm at the time of my evaluation. No rubs, no murmurs. ABDOMEN: Soft, full, bowel sounds are positive, nontender, no palpable hepatosplenomegaly. EXTREMITIES: Without overt digital clubbing, cyanosis, no pedal edema. Dorsalis pedis pulses are palpable bilaterally. NEUROLOGIC: Pupils are equal, round, about 3-4 mm, reactive to light. Extraocular muscle movements are intact. She moves all 4 extremities spontaneously. Affect is a little anxious. Mood is appropriate. LABORATORY DATA: From my review are as follows: White cell count 7200, hemoglobin 11.6, hematocrit 36.9, platelet count 228. D-dimer slightly elevated at 356. INR 0.90. Serum sodium 134, potassium 4.1, chloride 97, bicarbonate 21, BUN 28, creatinine 1.4, glucose 146. Cardiac enzymes, troponin within normal limits. CPK, slightly elevated at 519. Digoxin level was low at 0.4. TSH and free T4 within normal limits. No microbiology studies. Chest x-ray was done. I have reviewed the chest x-ray and essentially borderline to gross cardiomegaly, otherwise really unremarkable chest x-ray if you ask me. No gross pneumothorax, no gross bony fractures. A 2D echocardiogram has been done. The report is pending. ASSESSMENT AND PLAN: 1. Symptomatic bradycardia. 2. Third-degree AV block. 3. Obesity. 4. History of hypertension. 5. Diabetes. 6. Hyponatremia. 7. Mild metabolic acidosis. PLAN: 1. Continue temporary transvenous pacemaker. 2. Reinstitute home medications as per Cardiology. 3. Begin DVT prophylaxis. 4. She may end up needing a permanent pacemaker as most of this rhythm I see is paced beats. I will defer to Cardiology on that. 4. I have advised her to seek a Sleep Clinic evaluation post-discharge based on her clinical exam and the history she gave me regarding snoring. Otherwise, she will be of benefit from GI prophylaxis, especially while on anticoagulation and flu and pneumonia vaccination will be per protocol. We will observe her in the Intensive Care Unit until the final decision is made in terms of management of the bradycardia, which certainly could be a life threatening illness and event if not managed appropriately. At this point, I have spent about 35-40 minutes of time with her. JOB# [id number] JOHN/SALONI
[2017-06-09] MEDS ORDERED: NACL 0.9% 1,000 ML, VANCOMYCIN VIAL 1,000 MG IR ONE (14:30)
[2017-06-09] MEDS ORDERED: NACL 0.9% 500 ML IR ONE (14:37)
[2017-06-09] MEDS ORDERED: XYLOCAINE 1% 20 mL ONE (14:37)
[2017-06-09] MEDS ORDERED: ANCEF/STERILE WATER 2 GM/20 ML 2 GM/20 ML SYRINGE IV ONE (14:37)
[2017-06-09] MEDS ORDERED: MARCAINE 0.5% 60 ML INFILTRATI ONE (14:37)
[2017-06-09] MEDS ORDERED: VERSED IV ONE (14:38)
[2017-06-09] MEDS ORDERED: NACL 0.9% 1000 ML 1,000 ML ONE (14:38)
[2017-06-09] MEDS ORDERED: SUBLIMAZE ONE (14:38)
[2017-06-09] MEDS ORDERED: BENADRYL ONE (15:18)
[2017-06-09] MEDS ORDERED: VANCOMYCIN VIAL 1,000 MG in NACL 0.9% 1,000 ML IRRIGATION ONE (16:05)
--- NOTE | 2017-06-09 16:58 | XRay Report ---
FINAL REPORT EXAM: XR CHEST 1V AP HISTORY: Pacemaker Postop TECHNIQUE: upright single view chest PRIORS: None. FINDINGS: Cardiac and mediastinal contours are unremarkable. No focal pulmonary infiltrate is identified. No pleural fluid collection seen. Pulmonary vasculature is unremarkable. Pacemaker is present. Lead wires are intact. IMPRESSION: Pacemaker. No acute abnormality.
[2017-06-09] MEDS ORDERED: ceFAZolin 1 GM in NACL 0.9% 20 ML IV SCH (17:00)
[2017-06-09] MEDS ORDERED: ANCEF/NS 1 GM/50 ML 1 GM/50 ML BAG IV SCH (17:00)
--- NOTE | 2017-06-09 20:31 | Progress Note ---
Assessment and Plan The patient is a 61-year-old female with a past medical history significant for HTN, HLP, DM. She is previously unknown to our practice. She presented on 2016 with c/o chest pain, n/v and fatigue which began yesterday morning. She states the chest pain was a nonexertional nonradiating substernal pressure which was associated with nausea. She denies any palpitations, SOB, diaphoresis , dizziness or syncope. Following arrival in ED, pt was found to be in complete heart block with HR in 30s. She was subsequently urgently taken to cardiac cath lab radiology technologist yesterday evening for TVP placement. She successfully underwent LHC, which showed no angiographic evidence of significant CAD, EF 55-60%, and TVP placement. On evaluation, she denies any current complaints and is 100% paced at 60bpm, BPs stable. Underlying rhythm is still noted to be CHB. Of note, pt's anti-hypertensive regimen prior to admission included atenolol 50mg daily, hydralazine and amlodipine. Pt denies any prior history of cardiac arrhythmias, cardiac w/u, or ever seeing a diesel scoop operator. Complete heart block. Permanent pacemaker placement today then transfer telemetry Subjective Date of service: 06/09/17 Principal diagnosis: CHB Objective Vital Signs - 12hr 06/09/17 06/09/17 06/09/17 08:31 08:41 08:51 Pulse Rate 60 60 60 Pulse Rate [ From Monitor] Respiratory 15 18 16 Rate Blood Pressure 116/64 116/64 116/64 O2 Sat by Pulse 100 99 99 Oximetry 06/09/17 06/09/17 06/09/17 09:00 09:11 09:21 Pulse Rate 60 60 60 Pulse Rate [ From Monitor] Respiratory 17 13 13 Rate Blood Pressure 101/77 101/77 101/77 O2 Sat by Pulse 100 100 99 Oximetry 06/09/17 06/09/17 06/09/17 09:23 09:31 09:41 Pulse Rate 60 60 Pulse Rate [ From Monitor] Respiratory 11 L 14 Rate Blood Pressure 101/77 101/77 O2 Sat by Pulse 100 100 99 Oximetry 06/09/17 06/09/17 06/09/17 09:51 10:00 10:11 Pulse Rate 60 60 60 Pulse Rate [ From Monitor] Respiratory 15 14 15 Rate Blood Pressure 101/77 98/74 98/74 O2 Sat by Pulse 100 100 100 Oximetry 06/09/17 06/09/17 06/09/17 10:21 10:31 10:41 Pulse Rate 60 60 60 Pulse Rate [ From Monitor] Respiratory 13 15 16 Rate Blood Pressure 98/74 98/74 98/74 O2 Sat by Pulse 100 100 100 Oximetry 06/09/17 06/09/17 06/09/17 10:51 11:00 11:11 Pulse Rate 61 60 60 Pulse Rate [ From Monitor] Respiratory 17 19 17 Rate Blood Pressure 98/74 108/73 108/73 O2 Sat by Pulse 100 100 100 Oximetry 06/09/17 06/09/17 06/09/17 11:21 11:31 11:41 Pulse Rate 60 60 60 Pulse Rate [ From Monitor] Respiratory 13 16 15 Rate Blood Pressure 108/73 108/73 108/73 O2 Sat by Pulse 100 100 99 Oximetry 06/09/17 06/09/17 06/09/17 11:51 12:00 12:11 Pulse Rate 60 60 60 Pulse Rate [ From Monitor] Respiratory 14 20 13 Rate Blood Pressure 108/73 110/70 110/70 O2 Sat by Pulse 95 97 95 Oximetry 06/09/17 06/09/17 06/09/17 12:21 12:31 12:41 Pulse Rate 60 60 60 Pulse Rate [ From Monitor] Respiratory 20 15 17 Rate Blood Pressure 110/70 110/70 110/70 O2 Sat by Pulse 99 97 97 Oximetry 06/09/17 06/09/17 06/09/17 12:51 13:00 13:11 Pulse Rate 60 60 60 Pulse Rate [ From Monitor] Respiratory 15 20 15 Rate Blood Pressure 110/70 103/82 103/82 O2 Sat by Pulse 99 98 98 Oximetry 06/09/17 06/09/17 06/09/17 13:21 13:31 13:41 Pulse Rate 60 61 60 Pulse Rate [ From Monitor] Respiratory 16 17 13 Rate Blood Pressure 103/82 103/82 103/82 O2 Sat by Pulse 100 99 100 Oximetry 06/09/17 19:38 Pulse Rate Pulse Rate [ 67 From Monitor] Respiratory 20 Rate Blood Pressure O2 Sat by Pulse Oximetry Constitutional: no acute distress Eyes: non-icteric ENT: oropharynx moist Neck: supple Effort: normal CBC and BMP: 06/09/17 04:49 06/09/17 04:49 ABG, PT/INR, D-dimer: PT/INR, D-dimer PT 14.4 Sec. (12.2-14.9) 06/09/17 04:49 INR 1.07 (0.87-1.13) 06/09/17 04:49 D-Dimer 356.84 ng/mlDDU (0-234) H 06/07/17 18:11 Abnormal lab findings: Abnormal Labs 06/07/17 06/07/17 06/07/17 18:11 18:11 18:11 MCH 26 L [place] % (Auto) 8.3 H D-Dimer Sodium 134 L Chloride 96.7 L Carbon Dioxide 21 L BUN 28 H Creatinine 1.4 H Glucose 146 H POC Glucose Total Creatine Kinase 519 H CK-MB (CK-2) 6.2 H Digoxin 0.4 L 06/07/17 06/08/17 06/08/17 18:11 14:54 17:14 MCH [place] % (Auto) D-Dimer 356.84 H Sodium Chloride Carbon Dioxide BUN Creatinine Glucose POC Glucose 118 H Total Creatine Kinase 280 H CK-MB (CK-2) Digoxin 06/09/17 06/09/17 06/09/17 04:49 04:49 04:49 MCH 27 L [place] % (Auto) 10.1 H D-Dimer Sodium Chloride Carbon Dioxide BUN 23 H Creatinine Glucose 108 H POC Glucose Total Creatine Kinase 213 H CK-MB (CK-2) Digoxin 06/09/17 06/09/17 05:46 07:52 MCH [place] % (Auto) D-Dimer Sodium Chloride Carbon Dioxide BUN Creatinine Glucose POC Glucose 110 H 115 H Total Creatine Kinase CK-MB (CK-2) Digoxin
[2017-06-09] MEDS: ceFAZolin 1 GM in NACL 0.9% 20 ML IV SCH (21:42)
[2017-06-10] MEDS: TYLENOL PO PRN (01:41)
[2017-06-10] MEDS: PERCOCET 5/325 PO PRN ×4 (02:47→16:55)
[2017-06-10] MEDS: ceFAZolin 1 GM in NACL 0.9% 20 ML IV SCH (05:29)
[2017-06-10] MEDS ORDERED: LOVASTATIN PO SCH (10:00)
--- NOTE | 2017-06-10 10:04 | Progress Note ---
Assessment and Plan Assessment: Complete heart block - s/p PPM implantation 06/09/2017 HTN HLP DM Elevated DDimer - consider further imaging to r/o PE per primary Plan: s/p PPM implantation yesterday. Post-procedure CXR showed NAF, no pneumothorax. Device interrogation this AM showed normal device function. Left pectoralis PPM implantation site pressure dressing removed, telfa and tegaderm dressing c/d/i with no evidence of bleeding or hematoma. Left arm immobilizer in place. Currently stable cardiac status. Pt may discharge home from cardiology standpoint. Follow up in our [place] office with Dr. Perdomo on 06/22/2017 @ 2:15PM. Follow up in our [place] office with Dr. Gauri Vargas, WATER SERVICE SUPERVISOR, on 06/15/2017 @ 1: 30PM. The patient has been seen in conjunction with Dr. AUSTEN Owusu who agrees with the assessment and plan of care. Subjective Date of service: 06/10/17 Principal diagnosis: CHB Interval history: pt resting comfortably in bed, no current cardiac complaints. s/p PPM implantation yesterday. Objective Last Vital Signs Temp 98.9 F 06/10/17 03:46 Pulse 64 06/10/17 03:47 Resp 20 06/10/17 03:46 BP 106/64 06/10/17 03:46 Pulse Ox 90 06/10/17 08:51 - Physical Examination General: No Apparent Distress HEENT: Positive: PERRL, Normocephaly, Mucus Membranes Moist Neck: Positive: neck supple, trachea midline Cardiac: Positive: Reg Rate and Rhythm, S1/S2 Lungs: Positive: clear to auscultation Neuro: Positive: Grossly Intact, Cranial Nerve 2-12 Intact Abdomen: Positive: Unremarkable, Soft, Active Bowel Sounds. Negative: Tender Skin: Positive: Clear. Negative: Rash Incision: Cardiac Cath Site (right femoral TVP in place ) Musculoskeletal: No Fluid Collection, No Pain, Normal Range of Motion Extremities: Present: upper extr. pulses, lower extr. pulses. Absent: edema - Labs and Meds Cardiac Enzymes 06/09/17 Range/Units 04:49 CK-MB (CK-2) 2.9 (0.0-4.0) ng/mL - Imaging and Cardiology EKG: report reviewed, image reviewed Echo: report reviewed (EF 50-55%, impaired relaxation, trace TR) Cardiac cath: report reviewed ( no angiographic evidence of significant CAD, EF 55-60%`) - Telemetry EKG Rhythm: Paced AV and intraventricular conduction: complete (3) AV block
--- NOTE | 2017-06-10 11:31 | Discharge Summary ---
Providers - Providers Date of Admission: 06/07/17 18:27 Attending physician: JOSE ROBERTO DIXON MD 06/07/17 18:39 Consult to Physician [CONS] Stat Consulting Provider: MORIAH SALAS Reason For Exam: third-degree AV block Place consult to:: phone Notified:: y 06/07/17 22:40 Consult to Physician [CONS] Urgent Consulting Provider: BRYNN BOND Reason For Exam: icu admit Place consult to:: Fr. Khanna Notified:: yes Phone number called:: [phone] Was contact made?: Yes If yes, spoke with:: Dr. Khanna Time called:: 20:15 Primary care physician: MEDICAID COLLECTION SPECIALIST Hospitalization Condition: Serious Hospital course: 61 YO Female with HTN, DM, Obesity who pw chest pain, she was found to have profound bradycardia and third-degree heart block, she was managed by cardiology , she went on to have a permanent pacemaker placed. She also had an angiogram that showed clean coronaries with no significant stenosis and preserved EF. All AV graham blocking agents were discontinued, she clinically improved. She was subsequently discharged Discharge diagnoses Third degree heart block Profound bradycardia Hypertension Diabetes Metabolic syndrome Disposition: DC- TO HOME OR SELFCARE Time spent for discharge: 33 minutes Core Measure Documentation - Palliative Care Palliative Care/ Comfort Measures: Not Applicable - Core Measures Any of the following diagnoses?: none Exam - Constitutional Vitals: Temp Pulse Resp BP Pulse Ox 98.9 F 64 20 106/64 90 06/10/17 03:46 06/10/17 03:47 06/10/17 03:46 06/10/17 03:46 06/10/17 08:51 General appearance: Present: no acute distress, well-nourished - EENT Eyes: Present: PERRL ENT: hearing intact, clear oral mucosa - Neck Neck: Present: supple, normal ROM - Respiratory Respiratory effort: normal Respiratory: bilateral: CTA - Cardiovascular Heart Sounds: Present: S1 & S2. Absent: rub, click - Extremities Extremities: pulses symmetrical, No edema Peripheral Pulses: within normal limits - Abdominal General gastrointestinal: Present: soft, non-tender, non-distended, normal bowel sounds Female genitourinary: Present: normal - Integumentary Integumentary: Present: clear, warm, dry - Musculoskeletal Musculoskeletal: gait normal, strength equal bilaterally - Psychiatric Psychiatric: appropriate mood/affect, intact judgment & insight - Neurologic Neurologic: CNII-XII intact, moves all extremities Plan Follow up with: [facility] [Provider Group] - 7 Days PRIMARY CARE, [Primary Care Provider] - 3-5 Days Forms: CardCath PCI D/C Instructions Prescriptions: oxyCODONE /ACETAMINOPHEN [Percocet 5/325 mg] 1 tab PO Q4H PRN #14 tablet PRN Reason: Pain, Moderate (4-6)
[2017-06-10 12:56] VITALS: BP 108/71
--- NOTE | 2017-06-14 15:27 | Query- General ---
Dear ____nohelia Date: Gritting Machine Operator/CDS:___[place] / Juan Francisco Phone#:____[phone] Exercise your independent professional judgment when responding to this query. Questions asked do not imply a particular answer is desired or expected. We greatly appreciate your clarification on this issue. Clinical Documentation States: 61 year old female was admitted on 06/07/17. The discharge summary (Dr. Parikh) states " 61 YO Female with HTN, DM, Obesity presents to ED for evaluation. Pt states that she has been experiencing pain in her chest for the past day with persistent symptoms during that same time period (1) ACS (acute coronary syndrome) (4) Diabetes " Clinical Findings Show (include reference to source document): 06/07/17 06/09/17 Creatinine: 1.4 1.1 BUN/Creatinine Ratio : 20 21 Given the above clinical scenario can you please provide an appropriate diagnosis based on your knowledge of the patient: PHYSICIAN RESPONSE: [ ] Tubular necrosis [ ] Cortical necrosis [ ] Medullary necrosis [ x ] vasomotor nephropathy [ ] Tubular nephrosis [ ] Lower tubular nephrosis [ ] Renal tubular stasis [ ] other (Please specify) [ ] Clinically undeterminable Present on Admission: [ x] Yes (Y) [ ] Clinically undeterminable (W) [ ]No(N) Please also document response in your Progress Notes and/or Discharge Summary and indicate if the condition was present on admission. MTDD
== END 2017-06-10 18:06 | disposition home or self-care (01) | DRG 242 ==
LOC: ED 17:31 → CC1 18:27 → 4A 06-09 17:11
PROVIDERS: ADMIT Internal Medicine; ATTEND Internal Medicine
PROC: 5A1213Z Performance of Cardiac Pacing, Intermittent (ICD-10-PCS; principal; 2017-06-07)
PROC: 4A023N7 Measurement of Cardiac Sampling and Pressure, Left Heart, Percutaneous Approach (ICD-10-PCS; 2017-06-07)
PROC: B2111ZZ Fluoroscopy of Multiple Coronary Arteries using Low Osmolar Contrast (ICD-10-PCS; 2017-06-07)
PROC: B2151ZZ Fluoroscopy of Left Heart using Low Osmolar Contrast (ICD-10-PCS; 2017-06-07)
PROC: 0JH606Z Insertion of Pacemaker, Dual Chamber into Chest Subcutaneous Tissue and Fascia, Open Approach (ICD-10-PCS; 2017-06-09)
PROC: 02H63JZ Insertion of Pacemaker Lead into Right Atrium, Percutaneous Approach (ICD-10-PCS; 2017-06-09)
PROC: 02HK3JZ Insertion of Pacemaker Lead into Right Ventricle, Percutaneous Approach (ICD-10-PCS; 2017-06-09)
DX: I44.2 Atrioventricular block, complete (principal); N17.0 Acute kidney failure with tubular necrosis; I24.9 Acute ischemic heart disease, unspecified; E66.9 Obesity, unspecified; E78.5 Hyperlipidemia, unspecified; I10 Essential (primary) hypertension; E88.81 Metabolic syndrome and other insulin resistance; E11.9 Type 2 diabetes mellitus without complications; Z79.899 Other long term (current) drug therapy; Z83.3 Family history of diabetes mellitus; Z82.49 Family history of ischemic heart disease and other diseases of the circulatory system; Z88.8 Allergy status to other drugs, medicaments and biological substances
CPT/HCPCS: 33208; 33210; 36415; 71010; 80048; 80162; 82550; 82553; 82962; 83735; 83880; 84439; 84443; 84484; 85025; 85379; 85610; 85730; 93005; 93010; 93306; 93458; 94760; 99285; C1779; C1785; C1892; C1894; J0461; J0583; J0690; J1200; J1644; J2250; J3010; J3370; J7030; J7040; Q9967

== ENCOUNTER 2017-11-10 14:01 | Emergency (ER) | payer OTHER ==
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
[2017-11-10 18:04] VITALS: BP 138/89
== END 2017-11-10 17:56 | disposition home or self-care (01) ==
LOC: ED 14:01
DX: S46.812A Strain of other muscles, fascia and tendons at shoulder and upper arm level, left arm, initial encounter (principal); S46.912A Strain of unspecified muscle, fascia and tendon at shoulder and upper arm level, left arm, initial encounter; M70.22 Olecranon bursitis, left elbow; I10 Essential (primary) hypertension; E11.9 Type 2 diabetes mellitus without complications; V49.59XA Passenger injured in collision with other motor vehicles in traffic accident, initial encounter; Y93.89 Activity, other specified; Y92.89 Other specified places as the place of occurrence of the external cause; Y99.8 Other external cause status
CPT/HCPCS: 72040; 93005; 93010